=== PATIENT | female | born 1990 | race Hispanic/Latino ===

== ENCOUNTER 2021-07-02 01:39 | Inpatient (IN) | payer BC ==
[~2021-07-02] VITALS: Ht 154.9 cm; Wt 49.9 kg
[2021-07-02 02:16] LABS: BASOPHILS % (AUTO) 0.6 % (0.0-5.0); EOSINOPHILS % (AUTO) 0.4 % (0.0-8.0); HEMATOCRIT 39.4 % (36-48); LYMPHOCYTES % (AUTO) 18.6 % (21.0-51.0); MEAN CORPUSCULAR HEMOGLOBIN 30.8 pg (27.0-33.0); MEAN CORPUSCULAR HGB CONC 33.5 g/dL (32.0-36.0); MEAN CORPUSCULAR VOLUME 91.8 fL (79-99); MONOCYTES % (AUTO) 6.8 % (3.0-13.0); NEUTROPHILS % (AUTO) 73.3 % (40.0-77.0); PLATELET COUNT (AUTO) 316 K/uL (130-400); RED BLOOD CELL COUNT(AUTO) 4.29 MIL/uL (4.00-5.50); RED CELL DISTRIBUTION WIDTH 12.6 % (11.0-15.5); WHITE BLOOD COUNT (AUTO) 10.4 K/uL (4.8-10.8)
[2021-07-02 02:17] LABS: APPEARANCE,URINE Clear (CLEAR); BILIRUBIN,URINE Small (NEGATIVE); COLOR,URINE Dark Yellow (YELLOW); GLUCOSE, URINE (UA) Negative (NEGATIVE); KETONES,URINE 15 mg/dL (NEGATIVE); LEUKOCYTE ESTERASE ,URINE Small (NEGATIVE); NITRATE,URINE Negative (NEGATIVE); OCCULT BLOOD,URINE Small (NEGATIVE); PH,URINE 6.5 (5.0-8.0); PROTEIN,URINE Negative (NEGATIVE)
[2021-07-02 02:20] LABS: HCG,QUAL RESULT NEGATIVE (NEGATIVE)
[2021-07-02 02:22] LABS: POTASSIUM 3.6 mmol/L (3.5-5.1)
[2021-07-02 02:25] LABS: BACTERIA,URINE None Seen /HPF (None Seen); SQUAMOUS EPITHELIAL CELL,UR Moderate /HPF (0-2)
[2021-07-02] MEDS ORDERED: FAMOTIDINE 20MG TAB PO ONE (02:30)
[2021-07-02] MEDS ORDERED: HYOSCYAMINE SULFATE 0.125 MG TAB.SUBL SL SCH (02:30)
[2021-07-02] MEDS ORDERED: SUCRALFATE 1 GM TABLET PO ONE (02:30)
[2021-07-02 02:41] LABS: ALBUMIN 3.9 g/dL (3.5-5.0); BILIRUBIN,TOTAL 1.6 mg/dL (0.2-1.0); CREATININE 0.8 mg/dL (0.5-1.5); TOTAL PROTEIN, SERUM 7.9 g/dL (6.0-8.3)
[2021-07-02] MEDS ORDERED: 0.9%NACL 1000ML 1,000 ML IV ONE (03:30)
[2021-07-02] MEDS ORDERED: IOHEXOL 350 MG/ML 100ML INFUS..BTL IV ONE (03:53)
[2021-07-02] MEDS ORDERED: ONDANSETRON 4MG INJ IV PRN (08:30)
[2021-07-02] MEDS: 0.9%NACL 1000ML 1,000 ML IV SCH ×2 (08:53→23:51)
[2021-07-02] MEDS: CEFTRIAXONE 1G VIAL IVP SCH (08:53)
[2021-07-02] MEDS: FAMOTIDINE 20MG TAB PO SCH ×2 (08:53→20:59)
[2021-07-02] MEDS: ENOXAPARIN SODIUM 40 MG/0.4 ML SYRINGE SQ SCH (08:54)
[2021-07-02] MEDS: ACETAMINOPHEN WITH CODEINE 1 TAB TAB PO PRN ×3 (08:55→22:54)
[2021-07-02] MEDS ORDERED: FAMOTIDINE 20MG TAB PO SCH (09:00)
[2021-07-02 10:00] VITALS: BP 107/65
[2021-07-02 12:35] LABS: HEPATITIS A IGM ANTIBODY Non-Reactive (Negative); HEPATITIS B CORE IGM ANTIBODY Non-Reactive (Negative); HEPATITIS B SURFACE ANTIGEN Non-Reactive (Negative); HEPATITIS C ANTIBODY Non-Reactive (NEGATIVE)
[2021-07-02 16:00] VITALS: BP 102/59
[2021-07-02 19:22] VITALS: BP 103/61
[2021-07-03] VITALS (7 sets, daily range): BP systolic 94–113; BP diastolic 38–69
[2021-07-03 05:03] LABS: BASOPHILS % (AUTO) 1.4 % (0.0-5.0); EOSINOPHILS % (AUTO) 2.2 % (0.0-8.0); HEMATOCRIT 34.8 % (36-48); LYMPHOCYTES % (AUTO) 38.8 % (21.0-51.0); MEAN CORPUSCULAR HEMOGLOBIN 31.4 pg (27.0-33.0); MEAN CORPUSCULAR HGB CONC 33.9 g/dL (32.0-36.0); MEAN CORPUSCULAR VOLUME 92.6 fL (79-99); MONOCYTES % (AUTO) 8.2 % (3.0-13.0); PLATELET COUNT (AUTO) 247 K/uL (130-400); RED BLOOD CELL COUNT(AUTO) 3.76 MIL/uL (4.00-5.50); RED CELL DISTRIBUTION WIDTH 12.9 % (11.0-15.5)
[2021-07-03 05:05] LABS: CREATININE 0.6 mg/dL (0.5-1.5); POTASSIUM 3.4 mmol/L (3.5-5.1)
[2021-07-03 05:10] LABS: ALBUMIN 2.8 g/dL (3.5-5.0); BILIRUBIN,DIRECT 0.1 mg/dL (0.0-0.3); BILIRUBIN,TOTAL 0.6 mg/dL (0.2-1.0); TOTAL PROTEIN, SERUM 5.9 g/dL (6.0-8.3)
[2021-07-03] MEDS: ACETAMINOPHEN WITH CODEINE 1 TAB TAB PO PRN ×3 (09:22→21:54)
[2021-07-03] MEDS: CEFTRIAXONE 1G VIAL IVP SCH (09:23)
[2021-07-03] MEDS: FAMOTIDINE 20MG TAB PO SCH ×2 (09:23→21:51)
[2021-07-03] MEDS: ENOXAPARIN SODIUM 40 MG/0.4 ML SYRINGE SQ SCH (09:24)
[2021-07-03] MEDS: 0.9%NACL 1000ML 1,000 ML IV SCH (09:29)
[2021-07-04] MEDS: 0.9%NACL 1000ML 1,000 ML IV SCH ×2 (01:59→19:50)
[2021-07-04 04:03] VITALS: BP 99/54
[2021-07-04 05:15] LABS: EOSINOPHILS % (AUTO) 4.4 % (0.0-8.0); HEMATOCRIT 33.6 % (36-48); LYMPHOCYTES % (AUTO) 28.3 % (21.0-51.0); MEAN CORPUSCULAR HGB CONC 33.6 g/dL (32.0-36.0); MEAN CORPUSCULAR VOLUME 92.3 fL (79-99); MONOCYTES % (AUTO) 8.7 % (3.0-13.0); NEUTROPHILS % (AUTO) 57.2 % (40.0-77.0); PLATELET COUNT (AUTO) 223 K/uL (130-400); RED BLOOD CELL COUNT(AUTO) 3.64 MIL/uL (4.00-5.50); RED CELL DISTRIBUTION WIDTH 12.6 % (11.0-15.5); WHITE BLOOD COUNT (AUTO) 5.1 K/uL (4.8-10.8)
[2021-07-04 05:37] LABS: ALBUMIN 2.8 g/dL (3.5-5.0); BILIRUBIN,TOTAL 0.6 mg/dL (0.2-1.0); CREATININE 0.6 mg/dL (0.5-1.5); POTASSIUM 3.3 mmol/L (3.5-5.1)
[2021-07-04 07:30] VITALS: BP 126/73
[2021-07-04] MEDS: ENOXAPARIN SODIUM 40 MG/0.4 ML SYRINGE SQ SCH (10:02)
[2021-07-04] MEDS: CEFTRIAXONE 1G VIAL IVP SCH (10:02)
[2021-07-04] MEDS: FAMOTIDINE 20MG TAB PO SCH ×2 (10:02→21:09)
[2021-07-04] MEDS: ACETAMINOPHEN WITH CODEINE 1 TAB TAB PO PRN ×2 (10:11→19:51)
[2021-07-04 11:35] VITALS: BP 113/68
[2021-07-04 15:25] VITALS: BP 108/69
[2021-07-04 19:44] VITALS: BP 117/69
[2021-07-04 23:56] VITALS: BP 122/65
[2021-07-05] VITALS (26 sets, daily range): BP systolic 95–121; BP diastolic 52–82
[2021-07-05 04:54] LABS: BASOPHILS % (AUTO) 0.7 % (0.0-5.0); EOSINOPHILS % (AUTO) 2.6 % (0.0-8.0); HEMATOCRIT 36.3 % (36-48); LYMPHOCYTES % (AUTO) 28.8 % (21.0-51.0); MEAN CORPUSCULAR HEMOGLOBIN 31.8 pg (27.0-33.0); MEAN CORPUSCULAR HGB CONC 35.3 g/dL (32.0-36.0); MEAN CORPUSCULAR VOLUME 90.3 fL (79-99); MONOCYTES % (AUTO) 7.3 % (3.0-13.0); NEUTROPHILS % (AUTO) 60.4 % (40.0-77.0); PLATELET COUNT (AUTO) 269 K/uL (130-400); RED BLOOD CELL COUNT(AUTO) 4.02 MIL/uL (4.00-5.50); RED CELL DISTRIBUTION WIDTH 12.2 % (11.0-15.5); WHITE BLOOD COUNT (AUTO) 5.5 K/uL (4.8-10.8)
[2021-07-05 05:08] LABS: ALBUMIN 3.2 g/dL (3.5-5.0); BILIRUBIN,TOTAL 0.6 mg/dL (0.2-1.0); CREATININE 0.6 mg/dL (0.5-1.5); POTASSIUM 3.1 mmol/L (3.5-5.1); TOTAL PROTEIN, SERUM 6.7 g/dL (6.0-8.3)
[2021-07-05] MEDS: 0.9%NACL 1000ML 1,000 ML IV SCH ×2 (06:10→16:28)
[2021-07-05] MEDS ORDERED: IOHEXOL-350 50ML VIAL IV ONE (07:53)
[2021-07-05] MEDS ORDERED: LIDOCAINE PF 100MG/5ML (2%) SYRINGE 5ML ONE (07:55)
[2021-07-05] MEDS ORDERED: SUCCINYLCHOLINE CHLORIDE 20 MG/ML 10 ML VIAL ONE (07:55)
[2021-07-05] MEDS ORDERED: PROPOFOL 10 MG/ML 20ML VIAL IV ONE (07:55)
[2021-07-05] MEDS ORDERED: GLUCAGON 1MG KIT 1 MG ML ONE (08:19)
[2021-07-05] MEDS: CEFTRIAXONE 1G VIAL IVP SCH (08:30)
[2021-07-05] MEDS: ENOXAPARIN SODIUM 40 MG/0.4 ML SYRINGE SQ SCH (09:00)
[2021-07-05] MEDS: FAMOTIDINE 20MG TAB PO SCH ×2 (09:00→21:15)
[2021-07-05] MEDS ORDERED: KCL 20 MEQ ERTAB PO ONE ×3 (14:00→14:30)
[2021-07-05] MEDS: ACETAMINOPHEN WITH CODEINE 1 TAB TAB PO PRN (14:04)
[2021-07-06 03:48] VITALS: BP 104/68
[2021-07-06 08:00] VITALS: BP 104/63
[2021-07-06] MEDS: ACETAMINOPHEN WITH CODEINE 1 TAB TAB PO PRN (08:19)
[2021-07-06] MEDS: FAMOTIDINE 20MG TAB PO SCH (08:19)
[2021-07-06] MEDS: CEFTRIAXONE 1G VIAL IVP SCH (08:19)
[2021-07-06] MEDS: ENOXAPARIN SODIUM 40 MG/0.4 ML SYRINGE SQ SCH (08:22)
[2021-07-06 09:28] LABS: HEMATOCRIT 36.3 % (36-48); MEAN CORPUSCULAR HEMOGLOBIN 31.8 pg (27.0-33.0); MEAN CORPUSCULAR HGB CONC 35.3 g/dL (32.0-36.0); MEAN CORPUSCULAR VOLUME 90.3 fL (79-99); RED BLOOD CELL COUNT(AUTO) 4.02 MIL/uL (4.00-5.50); RED CELL DISTRIBUTION WIDTH 12.5 % (11.0-15.5)
[2021-07-06 09:46] LABS: CREATININE 0.6 mg/dL (0.5-1.5)
[2021-07-06 09:50] LABS: ALBUMIN 3.1 g/dL (3.5-5.0); BILIRUBIN,DIRECT 0.1 mg/dL (0.0-0.3); BILIRUBIN,TOTAL 0.4 mg/dL (0.2-1.0); TOTAL PROTEIN, SERUM 6.7 g/dL (6.0-8.3)
[2021-07-06 12:00] VITALS: BP 108/60
== END 2021-07-06 13:45 | disposition home or self-care (01) | DRG 446 ==
LOC: EDH 01:39 → OBSVTOIN 08:16 → EDHIP 08:16 → 3BH 09:05
PROVIDERS: ADMIT Internal Medicine; ATTEND Internal Medicine
PROC: 0FC98ZZ Extirpation of Matter from Common Bile Duct, Via Natural or Artificial Opening Endoscopic (ICD-10-PCS; principal; 2021-07-05)
PROC: 0F798ZZ Dilation of Common Bile Duct, Via Natural or Artificial Opening Endoscopic (ICD-10-PCS; 2021-07-05)
DX: K80.50 Calculus of bile duct without cholangitis or cholecystitis without obstruction (principal); Z90.49 Acquired absence of other specified parts of digestive tract; K83.8 Other specified diseases of biliary tract
CPT/HCPCS: 36415; 43262; 43264; 74177; 74181; 74328; 74330; 76705; 78227; 80048; 80053; 80074; 80076; 81001; 81025; 83690; 84145; 84443; 85025; 85027; 86701; 87077; 87088; 87186; 87390; A4606; A9537; C1769; G0378; J0330; J0696; J1610; J1650; J2001; J2405; J2704; J7030; Q9967

== ENCOUNTER → 2022-04-14 | Outpatient (CLI) | payer BC | END | disposition home or self-care (01) | LOC: RAH 10:06 | PROVIDERS: ATTEND Internal Medicine Gastroenterology | DX: R11.0 Nausea (principal) | CPT/HCPCS: 78264; A9541 ==

== ENCOUNTER 2022-11-11 01:30 | Emergency (ER) | payer BC ==
[~2022-11-11] VITALS: Ht 154.9 cm; Wt 53.1 kg
[2022-11-11] MEDS ORDERED: METOCLOPRAMIDE 10 MG/2 ML VIAL IVP ONE (02:30)
[2022-11-11] MEDS ORDERED: DiphenhydrAMINE HCL 50 MG/ML VIAL IV ONE (02:30)
[2022-11-11] MEDS ORDERED: KETOROLAC 30MG VIAL (30MG/ML) IVP ONE (02:30)
[2022-11-11] MEDS ORDERED: FAMOTIDINE 20MG VIAL IV ONE (02:30)
[2022-11-11] MEDS ORDERED: DEXAMETHASONE SOD PHOSPHATE 4 MG/ML 1ML VIAL IV ONE (02:30)
[2022-11-11] MEDS ORDERED: SUMA25TA25 PO (04:29)
[2022-11-11 04:30] LABS: RAPID GROUP A STREP negative (NEGATIVE)
[2022-11-11 04:38] LABS: SARS-CoV-2, RNA, NAAT NEGATIVE SARS CoV-2 (NEGATIVE)
[2022-11-11 04:40] LABS: INFLUENZA TYPE A Negative For Type A (NEGATIVE); INFLUENZA TYPE B Negative For Type B (NEGATIVE)
[2022-11-11 05:37] VITALS: BP 107/72; PULSE 60; RESP 16; O2SAT 100
== END 2022-11-11 05:56 | disposition home or self-care (01) ==
LOC: EDH 01:30
DX: G43.909 Migraine, unspecified, not intractable, without status migrainosus (principal); Z79.52 Long term (current) use of systemic steroids; Z90.49 Acquired absence of other specified parts of digestive tract; Z20.822 Contact with and (suspected) exposure to COVID-19
CPT/HCPCS: 99284; 96374; 96375; 87635; 87880; 87804 ×2; J1100; C9803; J1200; J3490; J1885; J2765